=== PATIENT | male | born 1945 | race Caucasian/White ===

== ENCOUNTER → 2019-05-26 11:20 | Outpatient (BNVA) | payer MEDICARE, OTHER, SELFPAY | PROVIDERS: Family Provider Nurse Practitioner; PCP Nurse Practitioner; Visit Provider Nurse Practitioner | DX: E11.65 Type 2 diabetes mellitus with hyperglycemia (principal); K21.9 Gastro-esophageal reflux disease without esophagitis; E78.2 Mixed hyperlipidemia | CPT/HCPCS: 80053; 80061; 81000; 82044; 83036 ==

== ENCOUNTER → 2019-08-07 15:08 | Outpatient (BNVA) | payer MEDICARE, OTHER, SELFPAY | PROVIDERS: Family Provider Nurse Practitioner; PCP Nurse Practitioner; Visit Provider Nurse Practitioner | DX: E11.65 Type 2 diabetes mellitus with hyperglycemia (principal); E78.2 Mixed hyperlipidemia; K21.9 Gastro-esophageal reflux disease without esophagitis; F41.9 Anxiety disorder, unspecified; F32.9 Major depressive disorder, single episode, unspecified | CPT/HCPCS: 80053; 83036 ==

== ENCOUNTER 2019-10-05 13:37 | Outpatient (CLI) | payer MEDICARE, OTHER, SELFPAY ==
--- NOTE | 2019-10-05 | USCV_ITS ---
Torres Isacc Age: 73 Gender: M : 1945 Exam Date: 10/05/2019 13:56 Ordering Phys: Vickie Montenegro MD ([email or web address]) Technologist: Bronwyn Galindo [place] [facility] [place]: ISCHEMIC CARDIOMYOPATHY BP: / HR: 71 Rhythm: Sinus Technical Quality: TDS MEASUREMENTS (Male / Female) Normal Values 2D ECHO LV Diastolic Diameter PLAX 3.3 cm 4.2 - 5.9 / 3.9 - 5.3 cm LV Systolic Diameter PLAX 2.5 cm LV Chamber Size 3.4 cm IVS Diastolic Thickness 1.0 cm 0.6 - 1.0 / 0.6 - 0.9 cm IVS Systolic Thickness 1.3 cm LVPW Diastolic Thickness 1.2 cm 0.6 - 1.0 / 0.6 - 0.9 cm LVPW Systolic Thickness 1.1 cm RV Chamber Size 2.3 cm LVOT Diameter 2.0 cm LV Ejection Fraction 2D Teich 52.5 % LV Ejection Fraction MOD 2C 57.2 % LV Ejection Fraction 2C AL 60.2 % LA Diameter 3.8 cm LA Width 2.7 cm LA Height 3.8 cm RA Width 3.5 cm RA Height 4.6 cm Aorta at Sinotubular Diameter 3.1 cm M-MODE Aortic Annulus Diameter 3.5 cm LA Ao Ratio MM 1.1 MV E Point Septal Separation 1.0 cm DOPPLER AV Peak Velocity 126.0 cm/s LVOT Peak Velocity 107.0 cm/s AV Area Cont Eq vti 2.9 cm squared AV Area Cont Eq pk 2.7 cm squared MV Area PHT 3.3 cm squared Mitral E to A Ratio 0.7 MV E' Velocity 13.0 cm/s Mitral E to MV E' Ratio 7.4 Mitral E to LV E' Lateral Ratio 5.9 Mitral E to LV E' Septal Ratio 9.8 TR Peak Velocity 203.3 cm/s TR Peak Gradient 16.5 mmHg TR Mean Velocity 131.8 cm/s TR Mean Gradient 8.8 mmHg TR Velocity Time Integral 41.2 cm TV Peak E Velocity 68.0 cm/s Right Atrial Pressure 3.0 mmHg Pulmonary Artery Systolic Pressu 19.5 mmHg PV Peak Velocity 76.0 cm/s RV Acceleration Time 0.2 s RV Ejection Time 0.3 s RV AcT/ET 0.5 FINDINGS Left Ventricle Normal LV size with a slightly diminished ejection fraction of 52% . Hypokinetic basal and mid inferior wall segment. Right Ventricle Normal right ventricular size and systolic function. Right Atrium Normal right atrial size. Left Atrium Normal left atrial size. Mitral Valve Thickened mitral valve. Aortic Valve Thickened aortic valve. Tricuspid Valve No gross abnormalities noted Pulmonic Valve Pulmonic valve not well visualized. Pericardium No pericardial effusion. Aorta Minimal plaques in the aorta CONCLUSIONS Normal LV size with a slightly diminished ejection fraction of 52% . Hypokinetic basal and mid inferior wall segments. Thickened aortic and mitral valves There is no pericardial effusion. There are no intracardiac masses. Compared to the previous study on 02/21/2018, there may not be a significant change Dr Vickie Montenegro MD FACC (Electronically Signed) Final Date: 05 October 2019 20:57 S
== END 2019-10-05 13:38 | disposition home or self-care (01) ==
LOC: US 13:38
PROVIDERS: PCP Nurse Practitioner; Visit Provider Internal Medicine Cardiovascular Disease
DX: I25.5 Ischemic cardiomyopathy (principal); I08.0 Rheumatic disorders of both mitral and aortic valves
CPT/HCPCS: 93306

== ENCOUNTER → 2019-11-07 14:33 | Outpatient (BNVA) | payer MEDICARE, OTHER, SELFPAY | PROVIDERS: Family Provider Nurse Practitioner; PCP Nurse Practitioner; Visit Provider Nurse Practitioner | DX: E11.65 Type 2 diabetes mellitus with hyperglycemia (principal); E78.5 Hyperlipidemia, unspecified | CPT/HCPCS: 80053; 80061; 81000; 83036 ==

== ENCOUNTER → 2020-01-23 15:08 | Outpatient (BNVA) | payer MEDICARE, OTHER, SELFPAY | PROVIDERS: Family Provider Nurse Practitioner; PCP Nurse Practitioner; Visit Provider Nurse Practitioner | DX: E11.65 Type 2 diabetes mellitus with hyperglycemia (principal) | CPT/HCPCS: 80053; 83036 ==

== ENCOUNTER → 2020-03-20 15:10 | Outpatient (BNVA) | payer MEDICARE, OTHER, SELFPAY | PROVIDERS: Family Provider Nurse Practitioner; PCP Nurse Practitioner; Visit Provider Internal Medicine Cardiovascular Disease | DX: I25.5 Ischemic cardiomyopathy (principal); E78.5 Hyperlipidemia, unspecified; I10 Essential (primary) hypertension; R74.8 Abnormal levels of other serum enzymes; I25.10 Atherosclerotic heart disease of native coronary artery without angina pectoris | CPT/HCPCS: 80061; 80076 ==

== ENCOUNTER → 2020-04-22 14:47 | Outpatient (BNVA) | payer MEDICARE, OTHER, SELFPAY | PROVIDERS: Family Provider Nurse Practitioner; PCP Nurse Practitioner; Visit Provider Nurse Practitioner | DX: E11.65 Type 2 diabetes mellitus with hyperglycemia (principal); K21.9 Gastro-esophageal reflux disease without esophagitis; F41.9 Anxiety disorder, unspecified; F32.9 Major depressive disorder, single episode, unspecified; E78.2 Mixed hyperlipidemia | CPT/HCPCS: 80048; 82043; 83036 ==

== ENCOUNTER → 2020-07-15 14:41 | Outpatient (BNVA) | payer MEDICARE, OTHER, SELFPAY | PROVIDERS: Family Provider Nurse Practitioner; PCP Nurse Practitioner; Visit Provider Nurse Practitioner | DX: E11.65 Type 2 diabetes mellitus with hyperglycemia (principal); E78.2 Mixed hyperlipidemia; K21.9 Gastro-esophageal reflux disease without esophagitis; F41.9 Anxiety disorder, unspecified; F32.9 Major depressive disorder, single episode, unspecified; I10 Essential (primary) hypertension | CPT/HCPCS: 80053; 83036 ==

== ENCOUNTER → 2020-09-18 09:38 | Outpatient (BNVA) | payer MEDICARE, OTHER, SELFPAY | PROVIDERS: Family Provider Nurse Practitioner; PCP Nurse Practitioner; Visit Provider Internal Medicine Cardiovascular Disease | DX: E78.5 Hyperlipidemia, unspecified (principal); R74.8 Abnormal levels of other serum enzymes | CPT/HCPCS: 80061; 80076 ==

== ENCOUNTER 2021-01-06 20:46 | Emergency (ER) | payer MEDICARE, OTHER, SELFPAY ==
[2021-01-06 20:54] VITALS: BP 128/80; PULSE 95; RESP 18; TEMP 36.5; O2SAT 96; BMI 31.4
--- NOTE | 2021-01-06 21:10 | W.ED.DENTAL ---
HPI - Dental/Oral General: Chief complaint: Dental/Oral Stated complaint: gums bleeding behind front teeth Time Seen by Provider: 01/06/21 21:10 History of Present Illness: HPI Narrative: Patient comes into the ER with a small wound to the behind the upper central incisors. Patient does not think he injured himself and does not recall stabbing it. Patient reports that it started this morning he was able to get it stopped and then this evening when he was drinking coffee it started bleeding again. Review of patient's medications it is noted that he is on my antiplatelet medication, PRASUGREL, patient appears well. Patient appears no acute distress. Review of Systems General: Reports: 10 or more systems reviewed and unremarkable except in HPI and below ENMT: Reports: other (Superficial laceration mouth with bleeding) PFSH ED PFSH: Medical History Anxiety and depression Atherosclerotic heart disease of [place] coronary artery without angina pectoris Controlled diabetes mellitus with hyperglycemia, without long-term current use of insulin Dyslipidemia Elevated liver enzymes Essential (primary) hypertension Gastro-esophageal reflux disease without esophagitis Ischemic cardiomyopathy Mixed hyperlipidemia Vitamin D deficiency Surgical History History of cervical spinal surgery screws and plate History of heart bypass surgery History of prostate surgery Family History Brother Cancer CAD (coronary artery disease) Father Cancer Sister Dementia Mother Diabetes Other Heart disease Hypertension Denies family history of Clotting disorder Chronic kidney disease (CKD) Suicide Anesthesia complication Bleeding disorder Lung disease Stroke Social History Smoking and tobacco status: former smoker Second hand smoke exposure: No Smoking risk assessment/counseling performed?: No Alcohol intake: never Desire information about alcohol rehabilitation?: No Counseling given: No Desire information about substance/drug rehabilitation?: No Counseling given: No Adopted: No Caregiver/support person: No Lives independently: Yes Household members: none Housing: House Marital status: / service: Yes branch: [employer] Current occupational status: retired History of recent travel: No Current gender identity: Male Physical Exam Const: COMMON NORMALS: no acute distress and patient oriented x3 GENERAL APPEARANCE: cooperative HENMT: COMMON NORMALS: normocephalic, TM's normal bilaterally and Normal external nose present HEAD & SCALP: normal to inspection and normocephalic NOSE: Normal external nose present TYMPANIC MEMBRANE: TM's normal bilaterally MOUTH: other (2 mm bleeding wound behind upper central incisors.) THROAT: posterior oropharynx normal Eye: GENERAL EYE: appearance normal, both eyes and all related structures Neck/C-Spine: COMMON NORMALS: full ROM Lymph: LYMPHATIC: no lymphadenopathy noted Chest: COMMONS NORMALS: normal inspection of the chest Resp: COMMON NORMALS: normal respiratory effort EFFORT & INSPECTION: Yes able to speak in complete sentences Cardio: COMMON NORMALS: regular rate and regular rhythm RATE: regular rate RHYTHM: regular rhythm GI: COMMON NORMALS: non-tender Extremity: COMMON NORMALS: normal to inspection Neuro: COMMON NORMALS: patient oriented x3 and moves all extremities Psych: COMMON NORMALS: mental status grossly normal and cooperative Skin: COMMON NORMALS: no rashes or lesions noted GENERAL SKIN EXAM: no rashes or lesions noted Course ED course: 955, bleeding continues to be controlled after silver nitrate application 30 minutes prior. Blood count is normal. Will continue to monitor. 2240, bleeding continues to be ceased, laboratory values were unremarkable. Reviewed exam with patient with recommendations for treatment follow-up and return. Patient reported understanding and agreed to plan. Vital Signs: Vital signs: Vital Signs Temperature 97.7 F 01/06/21 20:54 Pulse Rate 95 01/06/21 22:53 Respiratory Rate 16 01/06/21 22:53 Blood Pressure 137/86 01/06/21 22:53 Pulse Oximetry 95 01/06/21 22:53 MDM - Dental/Oral MDM Narrative: Medical decision making narrative: Patient comes in for a wound to the upper palate just posterior to the upper central incisors. On exam we note a 2 mm superficial laceration that is oozing blood. Patient states he noticed that this afternoon he was able to get it stopped with some pressure but it started again this evening after he drank some coffee. Patient appears well. Patient appears no acute distress. Vital signs are normal. Differential diagnosis includes adverse effect of antiplatelet therapy, oral laceration, dental infection. Gumline appears healthy. I believe patient probably accidentally injured the tissue which is caused some bleeding. Silver nitrate applicator was used to cauterize the tissue and bleeding was stopped. Patient was monitored for 1 hour and no further bleeding was noted. Lab Data: Labs: Lab Results 01/06/21 01/06/21 01/06/21 21:34 21:34 21:34 WBC 10.4 10^3/uL H 10 ^3/uL (4.0-10.0) RBC 4.86 10^6/uL 10^6 /uL (4.1-5.3) Hgb 14.1 g/dL g/dL (11.7-16.6) Hct 44.2 % % (42.0-52.0) MCV 90.9 fl fl (80-94) MCH 29.0 pg pg (28.0-34.0) MCHC 31.9 g/dL g/dL (30.0-36.0) RDW 12.1 % % (12.1-15.1) Plt Count 362 10^3/cmm 10^3 /cmm (130-400) MPV 10.6 fL H fL (7.4-10.4) Neut % (Auto) 58.1 % % Lymph % (Auto) 29.7 % % [place] % (Auto) 8.4 % % Eos % (Auto) 2.4 % % Baso % (Auto) 1.0 % % Neut # (Auto) 6.06 10^3/uL 10^3 /uL (1.8-7.7) Lymph # (Auto) 3.1 10^3/uL 10^3/ uL (0.8-4.8) [place] # (Auto) 0.9 10^3/uL 10^3/ uL (0.2-0.9) Eos # (Auto) 0.3 10^3/uL 10^3/ uL (0.0-0.8) Baso # (Auto) 0.1 10^3/uL 10^3/ uL (0.0-0.1) Nucleated RBC % (a uto) 0 % % Nucleated RBCs # 0.0 /100WBC /100W BC PT 13.90 SECONDS SEC ONDS (12.1-14.9) INR 1.03 (0.8-1.2) APTT 27.5 SECONDS SECO NDS (23.9-36.7) Sodium 135 mmol/L L mmol /L (136-145) Potassium 4.5 mmol/L mmol/L (3.5-5.1) Chloride 101 mmol/L mmol/L (98-107) Carbon Dioxide 20 mmol/L L mmol/ L (22-29) Anion Gap 18.5 (5-19) BUN 23 mg/dL mg/dL (8-23) Creatinine 1.1 mg/dL mg/dL (0.7-1.2) GFR Calculation Not Reportable Glucose 214 mg/dL H mg/dL (65-115) Calculated Osmolal ity 290 mOsm/kg mOsm/ kg (285-295) Calcium 9.1 mg/dL mg/dL (8.5-10.5) Total Bilirubin 0.3 mg/dL mg/dL (0.15-1.2) AST 42 U/L H U/L (0-40) ALT 38 U/L U/L (0-41) Alkaline Phosphata se 54 IU/L IU/L (40-130) Total Protein 6.6 g/dL g/dL (6.6-8.7) Albumin 4.2 g/dL g/dL (3.5-5.2) Globulin 2.4 g/dL g/dL (1.3-4.6) Discharge Plan Discharge Patient Disposition: Home Clinical Impression: Gum hemorrhage Condition: Stable Prescriptions: No Action loratadine 10 mg capsule 10 mg PO DAILY RF: 0 nitroglycerin [Nitrostat] 0.4 mg tablet, sublingual 0.4 mg SUBLINGUAL Q5M PRNRF: 0 Trulicity 1.5 mg/0.5 mL pen injector 1.5 mg SUBCUT .weekly Qty: 24 RF: 0 fenofibrate nanocrystallized [Tricor] 145 mg tablet 145 mg PO DAILY Qty: 90 RF: 0 omeprazole 20 mg capsule,delayed release(DR/EC) 20 mg PO DAILY PRN (Reason: acid reflux) Qty: 90 RF: 0 red yeast rice 1 ea PO DAILY RF: 0 metformin 500 mg tablet extended release 24 hr 500 mg PO BID Qty: 180 RF: 0 Repatha SureClick 140 mg/mL pen injector 140 mg SUBCUT .every two weeks Qty: 2 RF: 5 ramipril 10 mg capsule See Rx Instructions .ROUTE .COMPLEX Qty: 90 RF: 3 ezetimibe 10 mg tablet See Rx Instructions .ROUTE .COMPLEX Qty: 90 RF: 3 amlodipine 2.5 mg tablet 2.5 mg PO DAILY Qty: 90 RF: 3 metoprolol tartrate 25 mg tablet 12.5 mg PO DAILY Qty: 45 RF: 3 prasugrel 10 mg tablet See Rx Instructions .ROUTE .COMPLEX Qty: 90 RF: 3 venlafaxine [Effexor XR] 150 mg capsule,extended release 24hr 150 mg PO DAILY Qty: 90 RF: 0 Discharge Orders: Discharge ED (Routine); Ordered 01/06/21 Ordered By: Demian Otero Referrals: Diogenes Page, MONA [Primary Care Provider] - Discharge Diet: Usual diet Discharge Activity: Increase activity as tolerated Patient Instructions: Mouth Care (ED), Opioid Safety Activity Restrictions/Additional Instructions: Use a soft bristle toothbrush for brushing your teeth. Drink plenty of water. Hold antiplatelet agent, prasugral, for 2 days then restart. Follow-up with primary care in 2 to 3 days for recheck. Eat soft foods for the next 2 days. Return to the ER for new concerns or worsening symptoms. Coding Level of Care Code ED Casino Attendant for Byron Fwd Exam Comprehensive
[2021-01-06] MEDS: silver nitrate applicator 1 EACH TOPICAL (21:36)
[2021-01-06 21:43] LABS: Basophils # 0.1 10^3/uL (0.0-0.1); Eosinophils # 0.3 10^3/uL (0.0-0.8); Eosinophils % 2.4 %; Hematocrit 44.2 % (42.0-52.0); Hemoglobin 14.1 g/dL (11.7-16.6); Lymphocytes # 3.1 10^3/uL (0.8-4.8); Lymphocytes % 29.7 %; Mean Corpuscular HGB Conc 31.9 g/dL (30.0-36.0); Mean Corpuscular Volume 90.9 fl (80-94); Mean Platelet Volume 10.6 fL (7.4-10.4); Monocytes # 0.9 10^3/uL (0.2-0.9); Monocytes % 8.4 %; Neutrophils # 6.06 10^3/uL (1.8-7.7); Neutrophils % 58.1 %; Nucleated Red Blood Cells % 0 %; Platelet Count 362 10^3/cmm (130-400); Red Blood Count 4.86 10^6/uL (4.1-5.3); Red Cell Distribution Width 12.1 % (12.1-15.1); White Blood Count 10.4 10^3/uL (4.0-10.0)
[2021-01-06 22:15] LABS: INR 1.03 (0.8-1.2)
[2021-01-06 22:16] LABS: Partial Thromboplastin Time 27.5 SECONDS (23.9-36.7)
[2021-01-06 22:18] LABS: Alanine Aminotransferase 38 U/L (0-41); Albumin Level 4.2 g/dL (3.5-5.2); Alkaline Phosphatase 54 IU/L (40-130); Anion Gap 18.5 (5-19); Aspartate Amino Transferase 42 U/L (0-40); Blood Urea Nitrogen 23 mg/dL (8-23); Calcium 9.1 mg/dL (8.5-10.5); Carbon Dioxide 20 mmol/L (22-29); Chloride 101 mmol/L (98-107); Globulin 2.4 g/dL (1.3-4.6); Glucose 214 mg/dL (65-115); Osmolality Calculated 290 mOsm/kg (285-295); Potassium 4.5 mmol/L (3.5-5.1); Sodium 135 mmol/L (136-145); Total Bilirubin 0.3 mg/dL (0.15-1.2); Total Protein 6.6 g/dL (6.6-8.7)
[2021-01-06 22:53] VITALS: BP 137/86; PULSE 95; RESP 16; O2SAT 95
== END 2021-01-06 22:54 | disposition home or self-care (01) ==
PROVIDERS: Emergency Provider Nurse Practitioner Family; PCP Nurse Practitioner
DX: K06.8 Other specified disorders of gingiva and edentulous alveolar ridge (principal); Z87.891 Personal history of nicotine dependence; E11.9 Type 2 diabetes mellitus without complications; Z79.84 Long term (current) use of oral hypoglycemic drugs; Z79.02 Long term (current) use of antithrombotics/antiplatelets
CPT/HCPCS: 80053; 85025; 85610; 85730; 99282

== ENCOUNTER → 2021-01-07 14:55 | Outpatient (BNVA) | payer MEDICARE, OTHER, SELFPAY | PROVIDERS: Family Provider Nurse Practitioner; PCP Nurse Practitioner; Visit Provider Nurse Practitioner | DX: E11.65 Type 2 diabetes mellitus with hyperglycemia (principal); K21.9 Gastro-esophageal reflux disease without esophagitis; F41.9 Anxiety disorder, unspecified; F32.9 Major depressive disorder, single episode, unspecified; E78.2 Mixed hyperlipidemia; I10 Essential (primary) hypertension | CPT/HCPCS: 80061; 82043; 83036 ==

== ENCOUNTER → 2021-03-31 14:02 | Outpatient (BNVA) | payer MEDICARE, OTHER, SELFPAY | PROVIDERS: Family Provider Nurse Practitioner; PCP Nurse Practitioner; Visit Provider Nurse Practitioner | DX: E11.65 Type 2 diabetes mellitus with hyperglycemia (principal) | CPT/HCPCS: 80053; 83036 ==

== ENCOUNTER → 2021-07-01 14:40 | Outpatient (BNVA) | payer MEDICARE, OTHER, SELFPAY | PROVIDERS: Family Provider Nurse Practitioner; PCP Nurse Practitioner; Visit Provider Nurse Practitioner | DX: E11.65 Type 2 diabetes mellitus with hyperglycemia (principal); E78.2 Mixed hyperlipidemia; K21.9 Gastro-esophageal reflux disease without esophagitis; F41.9 Anxiety disorder, unspecified; F32.9 Major depressive disorder, single episode, unspecified | CPT/HCPCS: 80053; 83036 ==

== ENCOUNTER → 2021-09-23 14:46 | Outpatient (BNVA) | payer MEDICARE, OTHER, SELFPAY | PROVIDERS: Family Provider Nurse Practitioner; PCP Nurse Practitioner; Visit Provider Nurse Practitioner | DX: E11.65 Type 2 diabetes mellitus with hyperglycemia (principal); E78.2 Mixed hyperlipidemia; K21.9 Gastro-esophageal reflux disease without esophagitis; F41.9 Anxiety disorder, unspecified; F32.9 Major depressive disorder, single episode, unspecified; I10 Essential (primary) hypertension; I25.10 Atherosclerotic heart disease of native coronary artery without angina pectoris | CPT/HCPCS: 80053; 80061; 81000; 83036 ==

== ENCOUNTER → 2021-12-16 14:55 | Outpatient (BNVA) | payer MEDICARE, OTHER, SELFPAY | PROVIDERS: Family Provider Nurse Practitioner; PCP Nurse Practitioner; Visit Provider Nurse Practitioner | DX: E11.65 Type 2 diabetes mellitus with hyperglycemia (principal); E78.2 Mixed hyperlipidemia; K21.9 Gastro-esophageal reflux disease without esophagitis; F41.9 Anxiety disorder, unspecified; F32.9 Major depressive disorder, single episode, unspecified | CPT/HCPCS: 80053; 80061; 82043; 83036 ==

== ENCOUNTER → 2022-02-10 14:18 | Outpatient (BNVA) | payer MEDICARE, OTHER, SELFPAY | PROVIDERS: Family Provider Nurse Practitioner; PCP Nurse Practitioner; Visit Provider Nurse Practitioner | DX: E11.65 Type 2 diabetes mellitus with hyperglycemia (principal); K21.9 Gastro-esophageal reflux disease without esophagitis; F41.9 Anxiety disorder, unspecified; F32.9 Major depressive disorder, single episode, unspecified; I25.10 Atherosclerotic heart disease of native coronary artery without angina pectoris; I10 Essential (primary) hypertension | CPT/HCPCS: 80053; 82043; 83036 ==

== ENCOUNTER 2022-02-21 19:29 | Emergency (ER) | payer MEDICARE, OTHER, SELFPAY ==
[2022-02-21 19:35] VITALS: BP 163/92; PULSE 90; RESP 16; TEMP 36.9; O2SAT 97; BMI 30.7
--- NOTE | 2022-02-21 19:46 | ECG_ITS ---
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 Measurements Intervals [place] Rate: 85 P: 34 NE: 233 QRS: 56 QRSD: 113 T: -33 QT: 355 QTc: 424 Interpretive Statements SINUS RHYTHM WITH FIRST DEGREE AV BLOCK LOW QRS VOLTAGE IN PRECORDIAL LEADS [QRS DEFLECTION < 1.0 mV IN CHEST LEADS] INFERIOR MYOCARDIAL INFARCTION , OF INDETERMINATE AGE [40+ ms Q WAVE AND/OR ST/T ABNORMALITY IN II/aVF] POSSIBLE ANTEROLATERAL MYOCARDIAL INFARCTION , PROBABLY OLD [30 ms Q WAVE IN I/aVL/V3-V6] No previous ECG available for comparison Electronically Signed On 02-22-2022 10:06:12 OPTIMIZATION ENGINEER by Dylan Reed M.D. [id number]
--- NOTE | 2022-02-21 21:50 | ED_ITS ---
HPI - Extremity Problem General: Chief complaint: Extremity Problem,Nontraumatic Stated complaint: Left arm pain and back pain Time Seen by Provider: 02/21/22 21:19 History of Present Illness: 76-year-old male patient comes in today for complaints of left scapular pain radiating down his right arm. Patient reports that the pain does remind him of when he has his previous heart attack. Patient states that his last time he had a heart attack his pain was mainly between his shoulder blades. Patient reports he was also thought it might of been secondary to a musculoskeletal pain because he fell about a week ago landing on that side. Patient reports no difficulty of moving or rotating the shoulder. Patient appears nontoxic and in mild to no pain. Associated symptoms: Reports chest pain; Deny fever(s) Review of Systems Const: Denies: fever(s) Card: Reports: chest pain Resp: Denies: dyspnea Musc: Reports: extremity pain (Left arm) PFSH ED PFSH: Medical History Anxiety and depression Atherosclerotic heart disease of [place] coronary artery without angina pectoris Controlled diabetes mellitus with hyperglycemia, without long-term current use of insulin Dyslipidemia Elevated liver enzymes Essential (primary) hypertension Gastro-esophageal reflux disease without esophagitis Ischemic cardiomyopathy Mixed hyperlipidemia Vitamin D deficiency Surgical History History of cervical spinal surgery screws and plate History of heart bypass surgery History of prostate surgery Family History Brother Cancer CAD (coronary artery disease) Father Cancer Sister Dementia Mother Diabetes Other Heart disease Hypertension Denies family history of Clotting disorder Chronic kidney disease (CKD) Suicide Anesthesia complication Bleeding disorder Lung disease Stroke Social History Smoking and tobacco status: former smoker Second hand smoke exposure: No Smoking risk assessment/counseling performed?: No Alcohol intake: never Desire information about alcohol rehabilitation?: No Counseling given: No Desire information about substance/drug rehabilitation?: No Counseling given: No Adopted: No Caregiver/support person: No Lives independently: Yes Household members: none Housing: House Marital status: / service: Yes branch: [employer] Current occupational status: retired History of recent travel: No Current gender identity: Male Physical Exam Const: COMMON NORMALS: alert HENMT: COMMON NORMALS: normocephalic HEAD & SCALP: normocephalic Neck/C-Spine: COMMON NORMALS: full ROM CERVICAL SPINE: No Cervical spine tenderness Chest: CHEST: No tenderness Resp: COMMON NORMALS: normal respiratory effort and clear to auscultation bilaterally AUSCULTATION: clear to auscultation bilaterally Cardio: COMMON NORMALS: regular rate and regular rhythm RATE: regular rate RHYTHM: regular rhythm GI: COMMON NORMALS: non-tender : COMMON NORMALS: Yes no CVA tenderness BLADDER/KIDNEY EXAM: Yes no CVA tenderness Back/Pelvis: COMMON NORMALS: no CVA tenderness and thoracic and lumbar spine normal to inspection Extremity: COMMON NORMALS: normal to inspection and full ROM Neuro: SENSORIUM/ORIENTATION: Yes alert Skin: COMMON NORMALS: turgor normal GENERAL SKIN EXAM: turgor normal Course Vital Signs: Vital signs: Vital Signs Temperature 98.5 F 02/21/22 19:35 Pulse Rate 78 02/21/22 22:04 Respiratory Rate 16 02/21/22 22:04 Blood Pressure 147/72 02/21/22 22:04 Pulse Oximetry 96 02/21/22 22:04 Oxygen Delivery Me thod 02/21/22 22:04 MDM - Extremity (Nontraumatic) Medical Decision Making Patient comes in today with some complaints of left arm pain starting last night. Patient does have coronary artery disease. Patient also reported a fall about a week ago. Pain is not reproducible with movement. Lungs are clear to auscultation. Abdomen soft nontender. No chest wall pain is noted on palpation. Heart rate is regular with normal tones. Patient has had aspirin this morning at home. Patient did not try any nitroglycerin at home. EKG is a sinus rhythm with first-degree AV block, no ST elevation or ectopy. Differential diagnosis includes not limited to ACS, stable angina, musculoskeletal pain. CBC and CMP were unremarkable except for some mild elevation in ALT and AST. EKG noted no significant acute abnormality. No changes were noted after 2 hours. Remainder of exam was unremarkable. Reviewed with patient with recommendations for treatment and follow-up. Patient reported he will follow-up with his photographic laboratory supervisor Dr. Montenegro on Wednesday for further evaluation and treatment and return if needed for worsening symptoms. Lab Data 02/21/22 22:00 02/21/22 22:00 Radiology Impressions Chest X-Ray 02/21/22 22:07 IMPRESSION: No acute findings. Laboratory Results WBC 10.1 10^3/uL (4.0-10.0) H 02/21/22 22:00 RBC 4.83 10^6/uL (4.1-5.3) 02/21/22 22:00 Hgb 14.1 g/dL (11.7-16.6) 02/21/22 22:00 Hct 44.7 % (42.0-52.0) 02/21/22 22:00 MCV 92.5 fl (80-94) 02/21/22 22:00 MCH 29.2 pg (28.0-34.0) 02/21/22 22:00 MCHC 31.5 g/dL (30.0-36.0) 02/21/22 22:00 RDW 12.7 % (12.1-15.1) 02/21/22 22:00 Plt Count 366 10^3/cmm (130-400) 02/21/22 22:00 MPV 10.3 fL (7.4-10.4) 02/21/22 22:00 Neut % (Auto) 57.5 % 02/21/22 22:00 Lymph % (Auto) 30.8 % 02/21/22 22:00 [place] % (Auto) 7.8 % 02/21/22 22:00 Eos % (Auto) 2.7 % 02/21/22 22:00 Baso % (Auto) 0.9 % 02/21/22 22:00 Neut # (Auto) 5.78 10^3/uL (1.8-7.7) 02/21/22 22:00 Lymph # (Auto) 3.1 10^3/uL (0.8-4.8) 02/21/22 22:00 [place] # (Auto) 0.8 10^3/uL (0.2-0.9) 02/21/22 22:00 Eos # (Auto) 0.3 10^3/uL (0.0-0.8) 02/21/22 22:00 Baso # (Auto) 0.1 10^3/uL (0.0-0.1) 02/21/22 22:00 Nucleated RBC % (auto) 0 % 02/21/22 22:00 Nucleated RBCs # 0.0 /100WBC 02/21/22 22:00 Sodium 136 mmol/L (136-145) 02/21/22 22:00 Potassium 4.6 mmol/L (3.5-5.1) 02/21/22 22:00 Chloride 97 mmol/L (98-107) L 02/21/22 22:00 Carbon Dioxide 25 mmol/L (22-29) 02/21/22 22:00 Anion Gap 18.6 (5-19) 02/21/22 22:00 BUN 22 mg/dL (8-23) 02/21/22 22:00 Creatinine 1.2 mg/dL (0.7-1.2) 02/21/22 22:00 GFR Calculation Not Reportable 02/21/22 22:00 Glucose 240 mg/dL (65-115) H 02/21/22 22:00 Calculated Osmolality 293 mOsm/kg (285-295) 02/21/22 22:00 Calcium 10.9 mg/dL (8.5-10.5) H 02/21/22 22:00 Total Bilirubin 0.2 mg/dL (0.15-1.2) 02/21/22 22:00 AST 54 U/L (0-40) H 02/21/22 22:00 ALT 60 U/L (0-41) H 02/21/22 22:00 Alkaline Phosphatase 60 U/L (40-130) 02/21/22 22:00 Troponin T Baseline 27 ng/L (0-15) H 02/21/22 22:00 Total Protein 7.5 g/dL (6.6-8.7) 02/21/22 22:00 Albumin 4.8 g/dL (3.5-5.2) 02/21/22 22:00 Globulin 2.7 g/dL (1.3-4.6) 02/21/22 22:00 Lipase 24 U/L (13-60) 02/21/22 22:00 Discharge Plan Discharge Patient Disposition: Home Clinical Impression: Arm pain, left Atherosclerotic heart disease of [place] coronary artery without angina pectoris Qualifiers: [place] vs. transplanted heart: [place] heart Qualified Code(s): I25.10 - Atherosclerotic heart disease of [place] coronary artery without angina pectoris Condition: Stable Prescriptions: No Action loratadine 10 mg capsule 10 mg PO DAILY fenofibrate nanocrystallized [Tricor] 145 mg tablet 145 mg PO DAILY Qty: 90 0RF metformin 500 mg tablet extended release 24 hr 500 mg PO BID Qty: 180 0RF omeprazole 20 mg capsule,delayed release(DR/EC) 20 mg PO DAILY PRN (Reason: acid reflux) Qty: 90 0RF venlafaxine [Effexor XR] 150 mg capsule,extended release 24hr 150 mg PO DAILY Qty: 90 0RF Trulicity 3 mg/0.5 mL pen injector 3 mg SUBCUT .weekly Qty: 6 0RF nitroglycerin [Nitrostat] 0.4 mg tablet, sublingual 0.4 mg SUBLINGUAL Q5M PRN (Reason: chest pain) Qty: 25 0RF prasugrel 10 mg tablet See Rx Instructions .ROUTE .COMPLEX Qty: 90 3RF Dose Instruction: TAKE 1 TABLET DAILY Rx Instructions: TAKE 1 TABLET DAILY ramipril 10 mg capsule See Rx Instructions .ROUTE .COMPLEX Qty: 90 3RF Dose Instruction: TAKE 1 CAPSULE DAILY Rx Instructions: TAKE 1 CAPSULE DAILY amlodipine 2.5 mg tablet See Rx Instructions .ROUTE .COMPLEX Qty: 90 3RF Dose Instruction: TAKE 1 TABLET DAILY Rx Instructions: TAKE 1 TABLET DAILY ezetimibe 10 mg tablet See Rx Instructions .ROUTE .COMPLEX Qty: 90 3RF Dose Instruction: TAKE 1 TABLET DAILY Rx Instructions: TAKE 1 TABLET DAILY Repatha SureClick 140 mg/mL pen injector See Rx Instructions .ROUTE .COMPLEX Qty: 2 12RF Dose Instruction: INJECT 140 MG UNDER THE SKIN EVERY 2 WEEKS Rx Instructions: INJECT 140 MG UNDER THE SKIN EVERY 2 WEEKS metoprolol tartrate 25 mg tablet 12.5 mg PO DAILY Qty: 45 0RF Rx Instructions: Must be seen for further refills Discharge Orders: Discharge ED (Routine); Ordered 02/21/22 Ordered By: Demian Otero Referrals: Diogenes Page FNP-C [Primary Care Provider] - Discharge Diet: Usual diet Discharge Activity: Increase activity as tolerated Patient Instructions: Chest Pain (ED) Activity Restrictions/Additional Instructions: Continue with routine medications as directed. Follow-up with photographic laboratory supervisor and/or primary care. Return to ER for worsening symptoms such as increased shortness of breath, fever greater than 100.4, or severe chest pressure and pain. Coding Level of Care Code ED Airplane Tester for Chg Fwd Exam Comprehensive
--- NOTE | 2022-02-21 22:00 | ECG_ITS ---
[facility] Test Date: 2022-02-21 Pat Name: Isacc Torres Department: Room: Gender: Male Extruder Operator Vertical: : 1945 Requested By: Demian Valera Order Number: [id number] Karla MD: Dylan Reed M.D. Measurements Intervals [place] Rate: 77 P: 67 IA: 223 QRS: 53 QRSD: 106 T: -15 QT: 348 QTc: 395 Interpretive Statements SINUS RHYTHM WITH FIRST DEGREE AV BLOCK PROBABLE INFERIOR MYOCARDIAL INFARCTION , OF INDETERMINATE AGE [35 ms Q WAVE IN II/aVF] Compared to ECG 02/21/2022 19:46:19 No significant changes Electronically Signed On 02-22-2022 10:09:41 LOCKSTITCH TOPSTITCHER by Dylan Reed M.D. [id number]
[2022-02-21 22:04] VITALS: BP 147/72; PULSE 78; RESP 16; O2SAT 96
--- NOTE | 2022-02-21 22:07 | XRR_ITS ---
PROCEDURE INFORMATION: Exam: XR Chest Exam date and time: 02/21/2022 10:29 PM Age: 76 years old Clinical indication: Chest pressure; Prior surgery; Surgery date: 6+ months; Surgery type: Cabg; Patient HX: Left arm pain and back pain; Additional info: Chest pain TECHNIQUE: Imaging protocol: Radiologic exam of the chest. Views: 1 view. COMPARISON: CR XR chest 2V* [id number] 05/29/2015 11:51 AM FINDINGS: Lungs: Unremarkable. No consolidation. Pleural spaces: Unremarkable. No pleural effusion. No pneumothorax. Heart/Mediastinum: Unremarkable. No cardiomegaly. Bones/joints: Interval postoperative metallic fixation of the cervicothoracic spine with or without metallic artifact. Stable sternotomy. XR/XR chest 1V portable [id number] IMPRESSION: No acute findings.
[2022-02-21 22:08] LABS: Basophils # 0.1 10^3/uL (0.0-0.1); Basophils % 0.9 %; Eosinophils # 0.3 10^3/uL (0.0-0.8); Eosinophils % 2.7 %; Hematocrit 44.7 % (42.0-52.0); Hemoglobin 14.1 g/dL (11.7-16.6); Lymphocytes # 3.1 10^3/uL (0.8-4.8); Lymphocytes % 30.8 %; Mean Corpuscular HGB Conc 31.5 g/dL (30.0-36.0); Mean Corpuscular Hemoglobin 29.2 pg (28.0-34.0); Mean Corpuscular Volume 92.5 fl (80-94); Mean Platelet Volume 10.3 fL (7.4-10.4); Monocytes # 0.8 10^3/uL (0.2-0.9); Monocytes % 7.8 %; Neutrophils # 5.78 10^3/uL (1.8-7.7); Neutrophils % 57.5 %; Nucleated Red Blood Cells % 0 %; Platelet Count 366 10^3/cmm (130-400); Red Blood Count 4.83 10^6/uL (4.1-5.3); Red Cell Distribution Width 12.7 % (12.1-15.1); White Blood Count 10.1 10^3/uL (4.0-10.0)
[2022-02-21] MEDS: nitroglycerin 1 gm/inch oint Pkt 0.5 INCH TOPICAL (22:12)
[2022-02-21 22:26] LABS: Troponin(5th) Baseline 27 ng/L (0-15)
[2022-02-21 22:29] LABS: Alanine Aminotransferase 60 U/L (0-41); Albumin Level 4.8 g/dL (3.5-5.2); Alkaline Phosphatase 60 U/L (40-130); Anion Gap 18.6 (5-19); Aspartate Amino Transferase 54 U/L (0-40); Blood Urea Nitrogen 22 mg/dL (8-23); Calcium 10.9 mg/dL (8.5-10.5); Carbon Dioxide 25 mmol/L (22-29); Chloride 97 mmol/L (98-107); Globulin 2.7 g/dL (1.3-4.6); Glucose 240 mg/dL (65-115); Lipase 24 U/L (13-60); Osmolality Calculated 293 mOsm/kg (285-295); Potassium 4.6 mmol/L (3.5-5.1); Sodium 136 mmol/L (136-145); Total Bilirubin 0.2 mg/dL (0.15-1.2); Total Protein 7.5 g/dL (6.6-8.7)
[2022-02-21 23:00] VITALS: BP 132/77; PULSE 74; RESP 16; O2SAT 95
== END 2022-02-21 23:10 | disposition home or self-care (01) ==
PROVIDERS: Emergency Provider Nurse Practitioner Family; PCP Nurse Practitioner
DX: M79.602 Pain in left arm (principal); I25.10 Atherosclerotic heart disease of native coronary artery without angina pectoris; Z79.84 Long term (current) use of oral hypoglycemic drugs; Z79.85 Long-term (current) use of injectable non-insulin antidiabetic drugs; Z87.891 Personal history of nicotine dependence; E11.9 Type 2 diabetes mellitus without complications; I10 Essential (primary) hypertension; E78.2 Mixed hyperlipidemia
CPT/HCPCS: 71045; 80053; 83690; 84484; 85025; 93005; 99285